=== PATIENT | female | born 1980 | race Caucasian/White ===

== ENCOUNTER 2018-02-26 10:35 | Emergency (ER) | payer OTHER ==
[~2018-02-26] VITALS: Ht 160 cm; Wt 94.8 kg
[2018-02-26 10:46] VITALS: BP 144/81; Ht 160 cm; Wt 94.8 kg
== END 2018-02-26 12:45 | disposition left against medical advice (07) ==
LOC: ED 10:35
DX: H57.11 Ocular pain, right eye (principal); Z53.21 Procedure and treatment not carried out due to patient leaving prior to being seen by health care provider